=== PATIENT | female | born 1965 ===

== ENCOUNTER 2016-06-10 13:20 | Emergency (ER) | payer BC, OTHER ==
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
== END 2016-06-10 14:22 | disposition short-term general hospital (02) ==
LOC: UCEAST 13:20
DX: R07.89 Other chest pain (principal); F41.9 Anxiety disorder, unspecified; Z88.2 Allergy status to sulfonamides
CPT/HCPCS: 93005; 99202; G0463